=== PATIENT | female | born 1990 | race Caucasian/White ===

== ENCOUNTER 2024-09-04 18:18 | Emergency (ER) | payer BC, SELFPAY ==
--- NOTE | 2024-09-04 18:52 | PD.EDURI ---
Upper Respiratory Inf. RME/HPI General Chief Complaint: Flu Like Symptoms Stated Complaint: FEVER Time Seen by Provider: 09/04/24 18:51 Arrival date/time: 09/04/24 18:18 RME / HPI RME / HPI Narrative: This section includes all my notes and documentations, including HPI, PE, and ED course. Flako Melton MD HPI: 33yo female present to the ED for a chief complaint of flu-like symptoms. Patient states she's had an intermittent fever, intermittent chest pain, fever, chills, and a headache since Thursday. She states her symptoms have persisted and have not gotten better, so she came in for evaluation. She denies any sore throat, shortness of breath or any other associated symptoms. No further symptoms reported. ROS: All negative except as documented in HPI. Physical Exam: General: Alert and oriented. Hacking cough noted. Eyes: Conjunctivae and lids clear. ENT: Pharynx normal. TM normal bilaterally. Neck: Supple. Heart: RRR. Lungs: No respiratory distress. Good air movement with bibasilar Rales. Abdomen: Soft and nontender. Legs: No clubbing, cyanosis, edema. Skin: Warm and dry. Neuro: Alert and oriented X 3. I reviewed all diagnostic test results. My interpretation of the chest x-ray is infiltrates. COVID/influenza/RSV negative. At this point, diagnoses include pneumonia. Treatment here included Zithromax and prednisone. Recommended a trial of treatment at home. Based on my best medical judgment, made decision no further evaluation or treatment indicated at this time. Patient understands and agrees to the discharge instructions customized and printed, see below. Discharge instructions from Dr. Melton: --No physical exertion for 3 days to help rest the lungs. ?-No smoking or exposure to smoking or pets or dust or cold or humidity. --Zithromax to kill the germs causing the pneumonia. --Prednisone to help decrease the swelling in the airways. --Albuterol 2 puffs every 4-6 hours as needed for cough or shortness of breath. --See a private doctor on 09/09/2024 if not completely better. --Seek immediate medical care with worsening or with any concerns. Flako Melton MD Related Data Home Medications ?Medication ?Instructions ?Recorded ?Confirmed vits no.[id number] fum 1 tab PO QDAY 05/19/20 05/23/20 27 mg iron-folic acid 800 mcg tablet ( Vitamin) Previous Rx's ?Medication ?Instructions ?Recorded ibuprofen 800 mg tablet 800 mg PO Q6H PRN pain #30 tabs 05/24/20 albuterol sulfate 90 mcg/actuation 2 inh inhalation QID PRN shortness 09/04/24 aerosol inhaler of breath or wheezing #8.5 grams azithromycin 500 mg tablet 500 mg PO QDAY 3 days #3 tabs 09/04/24 (Zithromax TRI-LUISA) prednisone 20 mg tablet 40 mg PO DAILY 3 days #6 tabs 09/04/24 Allergies Allergy/AdvReac Type Severity Reaction Status Date / Time docusate [From Colace] Allergy Verified 09/04/24 18:23 Review of Systems Review of Systems Systems Reviewed: All systems reviewed, normal except as documented Past Medical History Past Medical History NEUROLOGIC: Negative Neurological Disorders or Seizures CARDIAC: Negative Cardiac Disorders or Congestive Heart Failure RESPIRATORY: Negative Chronic Obstructive Pulmonary Disease (COPD) or Asthma GASTROINTESTINAL: Negative Gastrointestinal Disorders, Hepatitis or Colorectal Cancer GENITOURINARY: Negative Genitourinary Disorders, Renal Disease or Prostate Cancer REPRODUCTIVE: Positive Previous Pregnancies; Negative Breast Cancer, Endometriosis, Pelvic Inflammatory Disease, Testicular Cancer or Uterine Prolapse MUSCULOSKELETAL: Negative Musculoskeletal Disorders or Bone Cancer ENDOCRINE: Positive Endocrine Disorders; Negative Diabetes Mellitus Type 1 or Diabetes Mellitus Type 2 HEMATOLOGIC: Negative Blood Disorders or Anemia OTHER HISTORY: Negative Hospitalization, Autoimmune Disease, Down Syndrome, Developmental Delay, Shingles, Falls, Blood Transfusions, Blood Transfusion Reaction, Anesthesia Reactions, Organ Transplant, Chemotherapy, Radiation Therapy, Hyperbaric Therapy, MRSA, VRSA, Vancomycin-Resistant Enterococci, Human Immunodeficiency Virus (HIV), Chicken Pox, Measles, Mumps, Rubella ([place] Measles), Pertussis, Clostridium Difficile, Cancer, Breast Cancer, Cervical Cancer, Colorectal Cancer, Lung Cancer, Ovarian Cancer, Prostate Cancer or Testicular Cancer Family History FAMILY HISTORY: Positive Family Cardiac Disorders (high bp and cholesterol paternal); Negative Family Psychiatric Problems, Family Respiratory Disorders, Family Gastrointestinal Problems, Family Cancer, Family Surgery or Family Anesthesia Reaction Surgical History SURGICAL: Positive Section; Negative Neurologic Surgery or Organ Transplant Social History SMOKING STATUS: Never smoker ED Exam Narrative Physical exam: As noted in HPI. Course Course Course Narrative: CXR is ordered for determining the etiology of cough. Quality Measures none Orders Category Date Time Status Bedside COVID-19 Antigen Test NOW Care 09/04/24 19:11 Active XR chest 1V portable Stat Exams 09/04/24 19:11 Completed Influenza A & B Rapid Panel Stat Lab 09/04/24 19:10 Ordered Influenza A & B Rapid Panel Stat Lab 09/04/24 21:20 Received RSV [Respiratory Syncytial Virus Ag] Stat Lab 09/04/24 20:10 Completed Azithromycin Po [Zithromax PO] Med 09/04/24 21:21 Discontinued 500 mg PO X1 ONE predniSONE Med 09/04/24 19:09 Discontinued 60 mg PO X1 ONE Vital Signs Vital signs: Vital Signs Temperature 99.7 F 09/04/24 19:01 Pulse Rate 116 H 09/04/24 19:01 Respiratory Rate 20 09/04/24 19:01 Blood Pressure 123/86 H 09/04/24 19:01 Pulse Oximetry (%) 97 09/04/24 19:01 Oxygen Delivery Method Room Air 09/04/24 19:01 Upper Respiratory Infection MDM Narrative MDM Narrative:: Scribe Attestation: 09/04/24 Carline Fuentes am scribing for and in the presence of Dr. Melton. Patient data External records reviewed:: [facility] previous records (Per chart review, patient was seen here on 10/25/19 for gastroenteritis.) Clinical information provided by:: patient Social determinants that could affect healthcare access:: none Patient has the following chronic illnesses:: none How is presenting disease/condition affected by chronic disease/condition?: no chronic disease Evaluation data The following diagnostics were reviewed and interpreted by me:: lab results and radiology exam(s) Lab and/or radiology exams considered but not ordered:: none Interpretation Summary: Swabs are negative. CXR shows pneumonia. Medications / Prescriptions Medications or Prescriptions considered but not ordered:: none Medication administrations:: Medication Administration History Discontinued Medications Azithromycin (Azithromycin 250 Mg Tablet) 500 mg PO X1 ONE Stop: 09/04/24 21:22 Last Admin: 09/04/24 21:32 Dose: 500 mg Documented By: GUY Prednisone (Prednisone 20 Mg Tablet) 60 mg PO X1 ONE Stop: 09/04/24 19:10 Last Admin: 09/04/24 19:36 Dose: 60 mg Documented By: GUY Zithromax and prednisone Consultations Consultation(s) initiated? (list below): No Diagnosis Upper Respiratory Differential Diagnosis: upper respiratory infection, sinusitis, viral infection, bronchitis, influenza and other (COVID, pneumonia) Most likely diagnosis given after review of the tests above:: pneumonia Admission Indicated Admission indicated?: not indicated Admission Request Was there a request for admission?: No Disposition Plan Disposition Plan: Discharge Discharge Attestation Discharge Attestation: The patient and all family members were given an opportunity to ask questions and understood the discharge instructions. Discharge instructions specifically effects, indications for sooner follow up or return to the emergency department, and the expected course of current diagnosis. Patient condition: Stable Discharge Plan Plan Patient Disposition: HOME (Self Care) Prescriptions/Referrals Prescriptions/Med Rec: New prednisone 20 mg tablet 40 mg PO DAILY 3 Days Qty: 6 0RF Taper: Prednisone Taper 20 mg DAILY for 2 Days and 0 Hour 10 mg DAILY for 2 Days and 0 Hour 5 mg DAILY for 7 Days and 0 Hour albuterol sulfate 90 mcg/actuation HFA aerosol inhaler 2 inh inhalation QID PRN (Reason: shortness of breath or wheezing) Qty: 8.5 0RF azithromycin [Zithromax TRI-LUISA] 500 mg tablet 500 mg PO QDAY 3 Days Qty: 3 0RF No Action ibuprofen 800 mg tablet 800 mg PO Q6H PRN (Reason: pain) Qty: 30 0RF Vitamin 27 mg iron- 800 mcg Tablet 1 tab PO QDAY Referrals: AILIN WINTER [Primary Care Provider] - In 1 week Problem List Clinical Impression: Pneumonia Patient/Caregiver Discharge Instructions Discharge Activity: activity as tolerated Education Materials: ED Pneumonia (Adult) Additional Instructions: Discharge instructions from Dr. Melton: --No physical exertion for 3 days to help rest the lungs. ?-No smoking or exposure to smoking or pets or dust or cold or humidity. --Zithromax to kill the germs causing the pneumonia. --Prednisone to help decrease the swelling in the airways. --Albuterol 2 puffs every 4-6 hours as needed for cough or shortness of breath. --See a private doctor on 09/09/2024 if not completely better. --Seek immediate medical care with worsening or with any concerns. Print Language: Ecuadorean Stand Alone Forms: Ele Award Info., Patient Portal Info Letter
[2024-09-04 19:01] VITALS: BP 123/86; PULSE 116; RESP 20; TEMP 37.6; O2SAT 97
--- NOTE | 2024-09-04 19:11 | XR_ITS ---
Examination: AP chest single view Technique one AP upright portable chest single view Exam date and time: September 04, 2024 1939 hrs. Indications: Coughing fever beginning 3 days ago. Findings: Normal heart size No lobar pneumonia No pulmonary edema Impression: No pneumonia identified
[2024-09-04] MEDS: predniSONE 20 MG TABLET 60 MG PO (19:36)
[2024-09-04 21:14] LABS: Respiratory Syncytial Virus Ag Negative (Negative)
[2024-09-04] MEDS: AZITHROMYCIN 250 MG TABLET 500 MG PO (21:32)
[2024-09-04 22:10] LABS: Influenza A Ag Negative; Influenza B Ag Positive
--- NOTE | 2024-09-04 22:14 | PD.EDADDENDU ---
Emergency Room Addendum Addendum Narrative: Influenza positive. Tamiflu given here and prescribed.
[2024-09-04 22:25] VITALS: BP 114/73; PULSE 118; RESP 18; TEMP 37.7; O2SAT 97
[2024-09-04 22:31] VITALS: TEMP 37.7
[2024-09-04] MEDS: ACETAMINOPHEN 500 MG TABLET 1000 MG PO (22:31)
[2024-09-04] MEDS: OSELTAMIVIR 75 MG CAPSULE PO (22:31)
== END 2024-09-04 22:33 | disposition home or self-care (01) ==
PROVIDERS: Emergency Provider Emergency Medicine; PCP Nurse Practitioner Family
DX: J11.00 Influenza due to unidentified influenza virus with unspecified type of pneumonia (principal)
CPT/HCPCS: 71045; 87502; 87634; 87811; 99283; J7512; A9270

== ENCOUNTER → 2024-09-08 | Outpatient (CLI) | payer BC, SELFPAY ==
[2024-09-08 15:29] LABS: Misc Send Out* See Sep Rpt
[2024-09-08 16:36] LABS: Basophils % (Auto) 0 % (0-2.5); Eosinophils % (Auto) 0 % (0-10); Hematocrit 41.6 % (36.0-46.0); Hemoglobin 14.1 g/dL (12.0-16.0); Immature Granulocytes % (Auto) 0 % (0-0); Immature Granulocytes Auto 0.03 Thou/mm3 (0.00-0.00); Lymphocytes # (Auto) 5.2 Thou/mm3 (1.0-4.8); Lymphocytes % (Auto) 51 % (10-50); Mean Corpuscular HGB Conc 33.9 g/dl (31.0-37.0); Mean Corpuscular Hemoglobin 30.3 pg (25.0-35.0); Mean Corpuscular Volume 89 fL (80-100); Monocytes # (Auto) 0.6 Thou/mm3 (0.0-0.8); Monocytes % (Auto) 6 % (0-12); Neutrophils # (Auto) 4.4 Thou/mm3 (1.8-7.7); Neutrophils % (Auto) 42 % (37-80); Nucleated Red Blood Cell % 0 /100 WBC (0); Platelet Count 246 Thou/mm3 (140-440); RDW Standard Deviation 41.7 fL (36.4-46.3); Red Blood Count 4.66 Miln/mm3 (4.00-5.20); White Blood Count 10.3 Thou/mm3 (3.6-11.0)
[2024-09-08 16:43] LABS: Partial Thromboplastin Time 25.8 Seconds (22.0-36.0); Prothrombin Time 10.9 Seconds (9.0-12.2)
[2024-09-08 17:07] LABS: Alanine Aminotransferase 61 U/L (10-49); Albumin, Serum 4.1 gm/dL (3.5-5.0); Albumin/Globulin Ratio 1.7 (1.2-2.2); Alkaline Phosphatase 80 U/L (46-116); Amylase 80 U/L (30-118); Anion Gap 8 (7-16); Aspartate Amino Transferase 39 U/L (0-34); BUN/Creatinine Ratio 15 Ratio (12-20); Bilirubin,Total 0.4 mg/dL (0.3-1.2); Blood Urea Nitrogen 12 mg/dL (9-23); Calcium 9.3 mg/dL (8.3-10.6); Calcium (Corrected) 9.3 mg/dL (8.5-10.1); Carbon Dioxide 30.3 mMol/L (20.0-31.0); Chloride 102 mMol/L (98-107); Creatinine (Component) 0.8 mg/dL (0.6-1.3); Globulin 2.4 gm/dL (2.3-3.5); Glucose 81 mg/dL (74-106); Lipase 50 U/L (12-53); Osmolality,Calculated 278 (275-295); Potassium 3.5 mMol/L (3.4-5.1); Sodium 140 mMol/L (136-145); Total Protein 6.5 gm/dL (5.7-8.2); eGFR > 60 See Note
[2024-09-08 17:39] LABS: Path Review Blood Smear Sent to Pathologist
== END | disposition home or self-care (01) ==
LOC: COPL 15:12
PROVIDERS: PCP Nurse Practitioner Family; Referring Provider Internal Medicine Gastroenterology; Visit Provider Internal Medicine Gastroenterology
DX: R10.9 Unspecified abdominal pain (principal)
CPT/HCPCS: 36415; 80053; 82150; 83690; 85025; 85610; 85730; 86021; 86036; 86671

== ENCOUNTER → 2025-04-11 | Outpatient (CLI) | payer BC, SELFPAY ==
[2025-04-11 15:56] LABS: Misc Send Out* See Sep Rpt
== END | disposition home or self-care (01) ==
LOC: COPL 15:29
PROVIDERS: PCP Nurse Practitioner Family; Referring Provider Nurse Practitioner Family; Visit Provider Nurse Practitioner Family
DX: J31.0 Chronic rhinitis (principal)
CPT/HCPCS: 36415; 82784; 82785; 82787

== ENCOUNTER → 2025-08-01 | Outpatient (CLI) | payer BC, SELFPAY ==
[2025-08-01 13:32] LABS: Misc Send Out* See Sep Rpt
[2025-08-01 14:10] LABS: Thyroid Stimulating Hormone 4.32 uIU/mL (0.55-4.78)
== END | disposition home or self-care (01) ==
LOC: COPL 13:17
PROVIDERS: PCP Nurse Practitioner Family; Referring Provider Nurse Practitioner Family; Visit Provider Nurse Practitioner Family
DX: E03.9 Hypothyroidism, unspecified (principal); D84.89 Other immunodeficiencies
CPT/HCPCS: 36415; 84443; 86609